=== PATIENT | male | born 1965 | race Caucasian/White ===

== ENCOUNTER 2016-11-16 19:15 | Emergency (ER) | payer MEDICAID | END 2016-11-16 20:08 | disposition left against medical advice (07) | LOC: D.ER 19:15 | DX: M25.512 Pain in left shoulder (principal) ==

== ENCOUNTER 2016-12-23 10:58 | Outpatient (CLI) | payer MEDICAID ==
[~2016-12-23] VITALS: Ht 165.1 cm; Wt 88.6 kg
--- NOTE | ~2016-12-23 | HEMODYNAMI ---
PATIENT:POLLO PRITCHARD MEDICAL RECORD: [id number] : 65 LOCATION:[facility] ADMISSION DATE: 12/23/16 Generatedon:12/23/201614:46 Patient name: POLLO PRITCHARD Patient #: [id number] SSN: : 1965 Date of study: 12/23/2016 Page: Of Hemodynamic Procedure Report Patient Data Patient Demographics Procedure consent was obtained First Name: POLLO Gender: Male Last Name: MACHO : 1965 Middle Initial: BORIS Age: 51 year(s) Patient #: [id number] Race: Unknown Additional ID: [id number] Contact details [address]: [address] [place] [address] State: [place] City: [place] Zip code: [address] Admission Admission Data Admission Date: 12/23/2016 Admission Time: 10:58 Procedure Procedure Types Cath Procedure Diagnostic Procedure LHC LHC w/Coronaries Miscellaneous Procedures Moderate Sedation up to 15 minutes Procedure Description Procedure Date Procedure Date: 12/23/2016 Procedure Start Time: 14:30 Procedure Staff Name Function Missael Suarez MD Performing Physician Xiomara Abreu RT Scrub Shital Rogers RN Nurse Nadine Castañeda RN Nurse Trey Hernandez RT Monitor Procedure Data Cath Procedure Fluoroscopy Diagnostic fluoroscopy Total fluoroscopy Time: 1.8 time: 1.8 min min Diagnostic fluoroscopy Total fluoroscopy dose: 610 dose: 610 mGy mGy Contrast Material Contrast Material Type Amount (ml) Isovue 370 63 Entry Location Entry Primary Successful Side Size Upsize Upsize Entry Closure Succes sful Closure Location (Fr) 1 (Fr) 2 (Fr) Remarks Device Remarks Radial Right 6 Fr artery Short Diagnostic catheters Device Type Used For End Catheter Placement Terumo 5Fr Rustam 110cm Coronary catheter Angiography Procedure Medications Medication Administration Route Dosage Oxygen NC 2 l/min Heparin Flush Bag added to field 2 bags (1000units/500ml NS) Lidocaine 2% added to field 20 Radial Cocktail added to field 1 syringe (Verapomil 2mg/Nitro 400mcg/Heparin 1500units) Versed I.V. 1 mg Fentanyl I.V. 50 mcg Radial Cocktail I.A. 1 syringe (Verapomil 2mg/Nitro 400mcg/Heparin 1500units) Versed I.V. 1 mg Fentanyl I.V. 50 mcg Versed I.V. 1 mg Fentanyl I.V. 50 mcg Hemodynamics Rest Heart Rate: 65 (bpm) Pressure Samples Time Site Value (mmHg) Purpose Heart Use Rate(bpm) 14:36 LV 135/27,17 Snapshot 95 Gradients Valve Time Site Site Mean SEP/DFP Peak To Heart Use 1 2 (mmHg) (sec/min) Peak Rate (mmHg) (bpm) Aortic 14:37 LV AO 90 Snapshots Pre Cath Intra NCS Post Cath Vital Signs Time Heart Resp SPO2 NIBP (mmHg) Rhythm Pain Sedation Rate (ipm) (%) Status Level (bpm) 14:15:05 68 21 98 138/88(118) NSR 0 (11) 10(A) , No pain 14:19:21 67 16 97 137/82(111) NSR 0 (11) 10(A) , No pain 14:23:33 70 21 97 127/89(108) NSR 0 (11) 10(A) , No pain 14:27:43 69 19 98 132/84(109) NSR 0 (11) 10(A) , No pain 14:31:53 72 16 97 143/90(103) NSR 0 (11) 10(A) , No pain 14:36:05 124 16 98 119/67(109) NSR 0 (11) 9(A) , No pain 14:40:08 82 21 95 111/77(106) NSR 0 (11) 9(A) , No pain 14:43:17 80 21 96 126/75(96) NSR 0 (11) 9(A) , No pain Medications Time Medication Route Dose Verified Delivered Reason Notes Effectiveness by by 14:14:13 Oxygen NC 2 l/min Missael Llamas. Vito Castañeda RN physician 14:14:20 Heparin Flush added 2 bags Missael Canas used for Bag to [facility] procedure (1000units/500ml field MD BOONE NS) 14:14:28 Lidocaine 2% added 20ml Missael Canas used for to vial [facility] procedure field MD BOONE 14:14:34 Radial Cocktail added 1 Missael Canas used for ([facility] 2[facility]/Nitro field MD BOONE 400mcg/Heparin 1500units) 14:30:06 Versed I.V. 1 mg Missael Nadine for sedation [facility] V[facility] Castañeda RN, MD 14:30:17 Fentanyl I.V. 50 mcg Missael Nadine for sedation St. Vito Castañeda RN, MD 14:32:19 Versed I.V. 1 mg Missael Missael for sedation ErickVito Suarez MD, MD 14:32:27 Fentanyl I.V. 50 mcg Missael Huynhory for sedation [place] Su[place] MD, MD 14:34:37 Versed I.V. 1 mg Missael Missael for sedation [place] Su[place] MD, MD 14:34:43 Fentanyl I.V. 50 mcg Missael Huynhory for sedation ErickVito Suarez MD, MD 14:35:18 Radial Cocktail I.A. 1 Missael Canas for ([facility] 2mg/Nitro MD BOONE 400mcg/Heparin 1500units) Procedure Log Time Note 13:46:21 Nadine Castañeda RN sent for patient. Start room use. 13:55:25 Time tracking: Regular hours 13:55:29 Plan of Care:Hemodynamics will remain stable., Cardiac rhythm will remain stable., Comfort level will be maintained., Respiratory function will remain adequate., Patient/ family verbilizes understanding of procedure., Procedure tolerated without complication., Recovers from procedure without complications.. 14:09:17 Patient received from Pre/Post Procedure Room to [facility] 2 Alert and oriented. Tansferred to table in Supine position. 14:09:20 Correct patient and procedure confirmed by team. 14:09:23 Signed procedure consent form obtained from patient. 14:09:24 ECG and BP/O2 sat monitors applied to patient. 14:09:26 Full Disclosure recording started 14:09:48 - 14:09:53 H&P Date Dictated: 12/23/2016 H&P Addendum completed by physician on day of procedure. (MUST COMPLETE FOR ALL OUTPATIENTS). 14::55 Pre-procedure instructions explained to patient. 14::55 Pre-op teaching completed and patient verbalized understanding. 14:09:57 Family in waiting room. 14:09:59 Patient NPO since Midnight. 14:10:47 Is the patient allergic to Iodine/contrast media? No. 14:10:51 Is patient on blood thinner?Yes 14:10:54 ACC The patient was administered the following blood thiners within the last 24 hours: ACCAspirin 14:10:56 Patient diabetic? Yes. 14:10:57 If diabetic: On Metformin? No 14:10:58 - 14:10:59 ----Pre-sedation anethsthesia assessment.---- 14:11:04 Previous problem with sedation/anesthesia? No ? 14:11:05 Snore? Yes 14:11:06 Sleep apnea? Yes 14:11:08 Deviated septum? No 14:11:10 Opens mouth fully? No 14:11:12 Sticks out tongue? No 14:11:17 Airway obstruction? No ? 14:11:25 Dentures? No ? 14:11:32 Patient pain scale 0/10 no pain. 14:11:48 IV patent on arrival in left forearm with 0.9% NaCl at KVO. 14:11:59 Use device set Radial Dx 14:12:16 MBrace Wrist Support opened to sterile field. 14:12:17 Tegaderm 4 x 4 opened to sterile field. 14:12:18 Acist Manifold opened to sterile field. 14:12:19 St Gustavo 260cm J .035 wire opened to sterile field. 14:12:20 Acist Hand Control opened to sterile field. 14:12:21 Terumo 6Fr Slender Glidesheath opened to sterile field. 14:12:21 Bag Decanter opened to sterile field. 14:12:22 Acist Syringe opened to sterile field. 14:12:23 Medline Cath Pack opened to sterile field. 14:12:29 Sharps counted by scrub and verified by R.N. 14:12:29 Alarms reviewed by R. N. 14:12:33 Right Radial & Right Groin area was prepped with chlora-prep and draped in sterile fashion 14:13:58 Vital chart was started 14:14:13 Oxygen 2 l/min NC was administered by Nadine Castañeda RN; Per physician; 14:14:20 Heparin Flush Bag (1000units/500ml NS) 2 bags added to field was administered by Missael Suarez MD; used for procedure; 14:14:28 Lidocaine 2% 20ml vial added to field was administered by Missael Suarez MD; used for procedure; 14:14:34 Radial Cocktail (Verapomil 2mg/Nitro 400mcg/Heparin 1500units) 1 syring e added to field was administered by Missael Suarez MD; used for procedure; 14:15:42 Baseline sample Acquired. 14:15:46 Rhythm: sinus rhythm 14:28:22 Zero performed for pressure channel P1 14:29:33 Physician arrived 14:29:34 --------ALL STOP TIME OUT------ 14:29:35 Final Timeout: patient, procedure, and site verified with staff and physician. All members of the team are in agreement. 14:29:37 Right Radial & Right Groin site verified by team. 14:29:43 Physical assessment completed. ASA score P 2 - A patient with mild systemic disease as per Missael Suarez MD. 14:29:47 Sedation plan: IV Moderate Sedation Versed, Fentanyl 14:30:06 Versed 1 mg I.V. was administered by Nadine Castañeda RN; for sedation; 14:30:08 Zero performed for pressure channel P1 14:30:17 Fentanyl 50 mcg I.V. was administered by Nadine Castañeda RN; for sedation; 14:30:41 Local anesthetic to right radial artery with Lidocaine 2% by Missael Cerda MD.INITIAL ACCESS ONLY 14:32:19 Versed 1 mg I.V. was administered by Missael Suarez MD; for sedation; 14:32:27 Fentanyl 50 mcg I.V. was administered by Missael Suarez MD; for sedation; 14:34:16 A 6 Fr Short sheath was inserted into the Right Radial artery 14:34:37 Versed 1 mg I.V. was administered by Missael Suarez MD; for sedation; 14:34:43 Fentanyl 50 mcg I.V. was administered by Missael Suarez MD; for sedation; 14:35:09 A Terumo 5Fr Rustam 110cm catheter was advanced over the wire and used for Coronary Angiography. 14:35:18 Radial Cocktail (Verapomil 2mg/Nitro 400mcg/Heparin 1500units) 1 syring e I.A. was administered by Missael Suarez MD; for vasodilation; 14:35:44 LV angiography performed. 14:37:39 LCA angiography performed. 14:39:24 RCA angiography performed. 14:40:34 Terumo TR Band Standard opened to sterile field. 14:40:42 Procedure ended.(Physican Out) 14:41:05 Fluoroscopy time 01.80 minutes. 14:41:14 Flurop Dose total: 610 14:41:14 Fluoroscopy dose: 610 mGy 14:41:25 Contrast amount:Isovue 370 63ml. 14:41:26 Sharps counted by scrub and verified by R.N. 14:41:28 Insertion/operative site no bleeding no hematoma. 14:41:43 Post right radial artery:stable 14:41:45 Post Procedure Pulses reassessed and unchanged 14:41:50 Post-procedure physical assessment completed. ASA score P 2 - A patient with mild systemic disease as per Missael Suarez MD. 14:41:54 Post procedure rhythm: unchanged. 14:43:05 TR band inflated with 11cc of air. 14:43:35 Procedure type changed to Cath procedure, Diagnostic procedure, LHC, LH C w/Coronaries, Miscellaneous Procedures, Moderate Sedation up to 15 minutes 14:45:35 Report given to Pre/Post Procedure Room. 14:45:42 Patient transfered to Pre/Post Procedure Room with Stretcher. 14:46:03 Vital chart was stopped Device Usage Item Name Manufacture Quantity Catalog Hospital Part Current Minimal Lot# / Number Charge Number Stock Stock Serial# Code [place] [address] [id number] 537677 40027 529158 5 Wrist Vascular Support Dynamics Tegaderm 4 3M 1 1626W 421637 561411 295565 5 x 4 Acist Acist 1 26137 840770 351307 093957 [address] Gustavo 1 138917 553234 521870 870359 30 260cm J .035 wire Acist Hand Acist 1 55234 199639 865934 099616 5 Control [employer] Inc Terumo 6Fr Terumo 1 [id number] 640944 869052 264387 40 Slender Glidesheath Bag Microtek 1 2002S 508466 31513 611414 5 Decanter Medical Inc. Acist Acist 1 16234 989549 874824 336936 20 Syringe Medical Systems Inc Medline Cardinal 1 [id number] 364698 90790 536176 5 Cath Pack Health Terumo 5Fr Terumo 1 94-9319 603208 696986 766073 5 Rustam 110cm catheter Terumo TR Terumo 1 [id number] 935833 608299 438479 40 Band Standard Signature Audit Roby Stage Time Signature Unsigned Intra-Procedure 12/23/2016 Trey 2:46:00 PM [place] RT (R) (CV) Signatures Monitor : Trey Signature : Mary RT Date : Time : [facility] [address] [place] [address]
[~2016-12-23 10:58] MED LIST: ASPIRIN325 MG PO; BUSPAR10 MG PO; NEURONTIN 300300 MG PO; NITROSTAT0.4 MG SL; ZESTRIL10 MG PO
[2016-12-23 11:25] VITALS: BP 137/85; Ht 165.1 cm; Wt 88.6 kg
[2016-12-23] MEDS ORDERED: HUMALOG 30100 UNITS/ SC (11:25)
[2016-12-23 11:46] LABS: BASOPHILS 0.2 % (0-2); EOSINOPHILS 0.7 % (0-7); HEMATOCRIT 48.7 % (42.0-54.0); HEMOGLOBIN 16.7 g/dL (13.5-17.5); IMMATURE GRANULOCYTES 0.1 % (0-5); LYMPHOCYTES 12.1 % (15-50); MCH 28.7 pg (26.0-34.0); MCHC 34.3 g/dL (31.0-37.0); MCV 83.7 fL (80.0-100.0); MEAN PLATELET VOLUME 9.1 fL (7.4-10.4); MONOCYTES 6.6 % (2-11); NEUTROPHILS 80.3 % (40-80); PLATELET COUNT 262 10x3/uL (130-400); RBC 5.82 10x6/uL (4.20-6.10); RDW 12.7 % (11.5-14.5)
[2016-12-23 12:20] LABS: CALC OSMOLALITY 294 mosm/kg (275-300); CALCIUM 8.7 mg/dL (8.5-10.1); CARBON DIOXIDE 27.3 mmol/L (21.0-32.0); CHLORIDE - SERUM 108 mmol/L (98-107); CREATININE - SERUM 0.8 mg/dL (0.6-1.3); GLUCOSE 212 mg/dL (74-106); POTASSIUM - SERUM 4.2 mmol/L (3.5-5.1); SODIUM 144 mmol/L (136-145); UREA NITROGEN 19 mg/dL (7-18); eGFR NON AFRICAN AMERICAN > 90 mL/min (90-120)
--- NOTE | 2016-12-23 15:09 | NUR ---
TR BAND TO R/WRIST CDI NO BLEEDING NO HEMATOMA NOTED. INSTRUCTED PATIENT TO KEEP RUE STRAIGHT NO BENDING OR FLEXING OF WRIST.
--- NOTE | 2016-12-23 15:30 | NUR ---
REPOSITIONED TO SITTING WITH HOB UP 30 DEGREES FOR SANDWICH AND SODA TR BAND TO R/WRIST REMAINS CDI NO BLEEDING NO HEMATOMA NOTED. CHEST PAIN IS DENIED WITH VSS
--- NOTE | 2016-12-23 16:03 | NUR ---
4 CC AIR REMOVED FROM TR BAND WITH NO BLEEDING NO HEMATOMA NOTED. PATIENT UP TO BATHROOM WITH ASSIST CHEST PAIN DENIED
--- NOTE | 2016-12-23 16:25 | NUR ---
2 CC AIR REMOVED FROM TR BAND WITH NO BLEEDING NOTED. PIV REMOVED WITH DRESSING APPLIED.
--- NOTE | 2016-12-23 17:00 | NUR ---
VERBAL AND WRITTEN DISCHARGE GONE OVER WITH PATIENT AND FAMILY. ALL VERBALIZED UNDERSTANDING. CHEST PAIN IS DENIED TR BAND REMOVED WITH NO BLEEDING NO HEMATOMA NOTED. TRANSPORTED TO FRONT PARKING FOR FAMILY TO DRIVE HOME
--- NOTE | 2016-12-25 15:45 | OP ---
PATIENT NAME: POLLO PRITCHARD MEDICAL RECORD: [id number] :65 LOCATION:[facility] ADMISSION DATE: SURGEON: FAM MAYO MD OPERATION DATE: 12/23/16 PROCEDURES: 1. Left heart catheterization. 2. Selective coronary angiography. PROCEDURE IN DETAIL: After informed consent was obtained and after detailed explanation of risks, benefits, as well as alternative therapies, the patient elected to proceed with angiogram. The right radial area was prepped and draped in a normal sterile fashion. The right radial artery was cannulated via modified Seldinger technique with placement o f radial sheath Rustam catheter. The procedure was well -tolerated. The patient was returned to the hernandez after the sheath was removed and TR band was placed. FINDINGS: Left ventriculography was performed in standard 30 degree ALANIS view, normal wall motion, normal systolic function. CORONARY ANATOMY: 1. LEFT MAIN: The left main is free of disease. 2. LEFT ANTERIOR DESCENDING: The left anterior descending is free of disease as is the diagonal system. 3. CIRCUMFLEX: The circumflex is free of disease as is the marginal system. 4. RIGHT CORONARY ARTERY: Dominant artery, gives rise to the PDA, free of disease. IMPRESSION: Normal left ventricular systolic function. Normal coronary anatomy. FAM MAYO MD at 1545 CC: [id number] DICTATION DATE: 12/23/16 1400 MANAGER OPERATIONAL: DM 12/25/16 0846 DEP CLI 12/23/16 [facility] [address] [place] [address]
== END 2016-12-23 17:02 ==
LOC: D.CATH 10:58
PROVIDERS: Internal Medicine Interventional Cardiology
DX: I20.9 Angina pectoris, unspecified (principal); I10 Essential (primary) hypertension; E11.9 Type 2 diabetes mellitus without complications; Z87.891 Personal history of nicotine dependence; Z01.812 Encounter for preprocedural laboratory examination

== ENCOUNTER 2017-04-09 20:46 | Emergency (ER) | payer MEDICAID ==
[2016-12-23 11:25] VITALS: BMI 32.5
[~2017-04-09 20:46] MED LIST changes: +HUMALOG 30100 UNITS/ SC
== END 2017-04-09 23:12 | disposition home or self-care (01) ==
LOC: D.ER 20:46
DX: N45.1 Epididymitis (principal)

== ENCOUNTER 2017-05-25 12:00 | Emergency (ER) | payer MEDICAID ==
[2016-12-23 11:25] VITALS: BMI 32.5
[2017-05-25 13:38] LABS: BASOPHILS 0.1 % (0-2); EOSINOPHILS 0.6 % (0-7); HEMATOCRIT 47.1 % (42.0-54.0); HEMOGLOBIN 16.6 g/dL (13.5-17.5); IMMATURE GRANULOCYTES 0.4 % (0-5); LYMPHOCYTES 16.6 % (15-50); MCHC 35.2 g/dL (31.0-37.0); MCV 82.2 fL (80.0-100.0); MEAN PLATELET VOLUME 9.1 fL (7.4-10.4); MONOCYTES 8.7 % (2-11); NEUTROPHILS 73.6 % (40-80); PLATELET COUNT 266 10x3/uL (130-400); RBC 5.73 10x6/uL (4.20-6.10); RDW 12.6 % (11.5-14.5); WBC 8.3 10x3/uL (4.8-10.8)
[2017-05-25 13:52] LABS: ALBUMIN 3.3 g/dL (3.4-5.0); ALKALINE PHOSPHATASE 67 U/L (46-116); ALT (SGPT) 28 U/L (10-68); BILIRUBIN - TOTAL 0.77 mg/dL (0.2-1.3); CALC OSMOLALITY 283 mosm/kg (275-300); CALCIUM 8.4 mg/dL (8.5-10.1); CARBON DIOXIDE 25.7 mmol/L (21.0-32.0); CHLORIDE - SERUM 104 mmol/L (98-107); CREATININE - SERUM 0.8 mg/dL (0.6-1.3); GLUCOSE 206 mg/dL (74-106); POTASSIUM - SERUM 4.7 mmol/L (3.5-5.1); PROTEIN - SERUM 6.7 g/dL (6.4-8.2); SODIUM 139 mmol/L (136-145); UREA NITROGEN 13 mg/dL (7-18); eGFR NON AFRICAN AMERICAN > 90 mL/min (90-120)
== END 2017-05-25 14:33 | disposition home or self-care (01) ==
LOC: D.ER 12:00
PROVIDERS: Family Medicine
DX: R51 Headache (principal); F17.200 Nicotine dependence, unspecified, uncomplicated; E11.9 Type 2 diabetes mellitus without complications; Z79.4 Long term (current) use of insulin; Z96.41 Presence of insulin pump (external) (internal); I10 Essential (primary) hypertension

== ENCOUNTER 2017-06-24 14:17 | Emergency (ER) | payer MEDICAID ==
[2016-12-23 11:25] VITALS: BMI 32.5
== END 2017-06-24 17:36 | disposition left against medical advice (07) ==
LOC: D.ER 14:17
DX: R05 Cough (principal)

== ENCOUNTER 2017-07-28 12:42 | Emergency (ER) | payer MEDICAID ==
[2016-12-23 11:25] VITALS: BMI 32.5
== END 2017-07-28 17:44 | disposition home or self-care (01) ==
LOC: D.ER 12:42
DX: R51 Headache (principal)

== ENCOUNTER 2018-01-27 16:40 | Emergency (ER) | payer MEDICAID ==
[~2018-01-27] VITALS: Ht 165.1 cm; Wt 94.1 kg
[2018-01-27 17:19] VITALS: Ht 165.1 cm; Wt 94.1 kg
[2018-01-27] MEDS ORDERED: MAG-OXIDE400 MG PO (17:20)
[2018-01-27] MEDS ORDERED: CYCLOBENZAPRINE10 MG PO (17:21)
[2018-01-27 18:02] LABS: BASOPHILS 0.2 % (0-2); EOSINOPHILS 0.7 % (0-7); HEMATOCRIT 47.5 % (42.0-54.0); HEMOGLOBIN 16.9 g/dL (13.5-17.5); IMMATURE GRANULOCYTES 0.3 % (0-5); MCH 29.4 pg (26.0-34.0); MCHC 35.6 g/dL (31.0-37.0); MCV 82.6 fL (80.0-100.0); MEAN PLATELET VOLUME 8.8 fL (7.4-10.4); MONOCYTES 6.8 % (2-11); PLATELET COUNT 247 10x3/uL (130-400); RBC 5.75 10x6/uL (4.20-6.10); RDW 12.8 % (11.5-14.5); WBC 11.3 10x3/uL (4.8-10.8)
[2018-01-27 18:27] LABS: ALBUMIN 3.7 g/dL (3.4-5.0); ALKALINE PHOSPHATASE 66 U/L (46-116); ALT (SGPT) 29 U/L (10-68); BILIRUBIN - TOTAL 0.59 mg/dL (0.2-1.3); CALC OSMOLALITY 277 mosm/kg (275-300); CALCIUM 8.8 mg/dL (8.5-10.1); CARBON DIOXIDE 32.5 mmol/L (21.0-32.0); CHLORIDE - SERUM 105 mmol/L (98-107); CREATININE - SERUM 0.9 mg/dL (0.6-1.3); GLUCOSE 76 mg/dL (74-106); POTASSIUM - SERUM 4.3 mmol/L (3.5-5.1); SODIUM 140 mmol/L (136-145); UREA NITROGEN 13 mg/dL (7-18); eGFR NON AFRICAN AMERICAN > 90 mL/min (90-120)
[2018-01-27 18:29] LABS: AMYLASE - SERUM 26 U/L (25-115); LIPASE 81 U/L (73-393)
[2018-01-27 18:32] LABS: TROPONIN-I < 0.017 ng/mL (0.000-0.060)
[2018-01-27 19:58] LABS: APPEARANCE CLEAR (CLEAR); BILIRUBIN NEGATIVE (NEGATIVE); COLOR YELLOW (YELLOW); GLUCOSE NEGATIVE (NEGATIVE); KETONE NEGATIVE (NEGATIVE); NITRITE NEGATIVE (NEGATIVE); PROTEIN NEGATIVE (NEGATIVE); SPECIFIC GRAVITY 1.015 (1.005-1.020); UROBILINOGEN NORMAL (NORMAL)
[2018-01-27] MEDS ORDERED: NORCO 7.5/325 T1 TA1 PO (21:32)
[2018-01-27 21:40] VITALS: BP 147/87
== END 2018-01-27 21:41 | disposition home or self-care (01) ==
LOC: D.ER 16:40
PROVIDERS: Family Medicine
DX: R07.81 Pleurodynia (principal); I10 Essential (primary) hypertension; E11.9 Type 2 diabetes mellitus without complications

== ENCOUNTER 2018-03-09 00:21 | Emergency (ER) | payer MEDICAID ==
[~2018-03-09] VITALS: Ht 165.1 cm; Wt 92.3 kg
[~2018-03-09 00:21] MED LIST changes: +CYCLOBENZAPRINE10 MG PO; +MAG-OXIDE400 MG PO; +NORCO 7.5/325 T1 TA1 PO
[2018-03-09 00:25] VITALS: Ht 165.1 cm; Wt 92.3 kg
[2018-03-09 00:54] LABS: APPEARANCE CLEAR (CLEAR); BILIRUBIN NEGATIVE (NEGATIVE); COLOR YELLOW (YELLOW); GLUCOSE 1000 mg/dL (NEGATIVE); KETONE NEGATIVE (NEGATIVE); NITRITE NEGATIVE (NEGATIVE); PROTEIN NEGATIVE (NEGATIVE); UROBILINOGEN NORMAL (NORMAL)
[2018-03-09 01:50] LABS: BASOPHILS 0.2 % (0-2); EOSINOPHILS 1.4 % (0-7); HEMATOCRIT 44.4 % (42.0-54.0); HEMOGLOBIN 15.7 g/dL (13.5-17.5); IMMATURE GRANULOCYTES 0.2 % (0-5); LYMPHOCYTES 18.5 % (15-50); MCH 29.2 pg (26.0-34.0); MCHC 35.4 g/dL (31.0-37.0); MCV 82.7 fL (80.0-100.0); MEAN PLATELET VOLUME 9.2 fL (7.4-10.4); MONOCYTES 10.2 % (2-11); NEUTROPHILS 69.5 % (40-80); PLATELET COUNT 242 10x3/uL (130-400); RBC 5.37 10x6/uL (4.20-6.10); RDW 12.8 % (11.5-14.5); WBC 8.5 10x3/uL (4.8-10.8)
[2018-03-09 01:57] LABS: INR 1.04 (0.85-1.17); PROTIME 13.2 SECONDS (11.6-15.0)
[2018-03-09 02:02] LABS: ALBUMIN 3.2 g/dL (3.4-5.0); ALKALINE PHOSPHATASE 61 U/L (46-116); ALT (SGPT) 18 U/L (10-68); BILIRUBIN - TOTAL 0.51 mg/dL (0.2-1.3); CALC OSMOLALITY 288 mosm/kg (275-300); CALCIUM 8.3 mg/dL (8.5-10.1); CARBON DIOXIDE 26.8 mmol/L (21.0-32.0); CHLORIDE - SERUM 105 mmol/L (98-107); CREATININE - SERUM 0.9 mg/dL (0.6-1.3); POTASSIUM - SERUM 3.7 mmol/L (3.5-5.1); PROTEIN - SERUM 6.3 g/dL (6.4-8.2); SODIUM 138 mmol/L (136-145); UREA NITROGEN 22 mg/dL (7-18); eGFR NON AFRICAN AMERICAN > 90 mL/min (90-120)
[2018-03-09 02:03] LABS: GLUCOSE 278 mg/dL (74-106)
[2018-03-09] MEDS ORDERED: NORCO 5/325 TAB1 TAB PO (02:37)
[2018-03-09 02:51] VITALS: BP 132/74
== END 2018-03-09 02:52 | disposition home or self-care (01) ==
LOC: D.ER 00:21
PROVIDERS: Family Medicine
DX: N50.812 Left testicular pain (principal); E11.9 Type 2 diabetes mellitus without complications; I10 Essential (primary) hypertension

== ENCOUNTER 2018-03-17 19:06 | Emergency (ER) | payer SELFPAY ==
[~2018-03-17] VITALS: Ht 165.1 cm; Wt 92.3 kg
[~2018-03-17 19:06] MED LIST changes: +NORCO 5/325 TAB1 TAB PO
[2018-03-17 19:10] VITALS: Ht 165.1 cm; Wt 92.3 kg
[2018-03-17 20:04] LABS: BASOPHILS 0.3 % (0-2); HEMATOCRIT 47.3 % (42.0-54.0); IMMATURE GRANULOCYTES 0.3 % (0-5); LYMPHOCYTES 21.1 % (15-50); MCH 29.5 pg (26.0-34.0); MCHC 35.9 g/dL (31.0-37.0); MCV 82.1 fL (80.0-100.0); MEAN PLATELET VOLUME 9.3 fL (7.4-10.4); MONOCYTES 8.7 % (2-11); NEUTROPHILS 68.6 % (40-80); PLATELET COUNT 253 10x3/uL (130-400); RBC 5.76 10x6/uL (4.20-6.10); RDW 12.8 % (11.5-14.5); WBC 8.8 10x3/uL (4.8-10.8)
[2018-03-17 20:56] LABS: ALBUMIN 3.6 g/dL (3.4-5.0); ANION GAP 13.4 mmol/L (8-16); BILIRUBIN - TOTAL 0.37 mg/dL (0.2-1.3); CALCIUM 8.7 mg/dL (8.5-10.1); CARBON DIOXIDE 25.7 mmol/L (21.0-32.0); CREATININE - SERUM 1.1 mg/dL (0.6-1.3); POTASSIUM - SERUM 4.1 mmol/L (3.5-5.1); PROTEIN - SERUM 6.7 g/dL (6.4-8.2)
[2018-03-17 21:35] LABS: APPEARANCE CLEAR (CLEAR); BILIRUBIN NEGATIVE (NEGATIVE); COLOR YELLOW (YELLOW); GLUCOSE 1000 mg/dL (NEGATIVE); KETONE NEGATIVE (NEGATIVE); NITRITE NEGATIVE (NEGATIVE); PROTEIN NEGATIVE (NEGATIVE); SPECIFIC GRAVITY 1.015 (1.005-1.020); UROBILINOGEN NORMAL (NORMAL)
[2018-03-17] MEDS ORDERED: NORCO 10-325 TA1 TAB PO (21:39)
[2018-03-17 21:56] VITALS: BP 164/101
== END 2018-03-17 21:57 | disposition home or self-care (01) ==
LOC: D.ER 19:06
PROVIDERS: Family Medicine
DX: N44.2 Benign cyst of testis (principal); E11.9 Type 2 diabetes mellitus without complications; I10 Essential (primary) hypertension

== ENCOUNTER 2018-05-05 03:32 | Emergency (ER) | payer SELFPAY ==
[~2018-05-05] VITALS: Ht 165.1 cm; Wt 95.0 kg
[~2018-05-05 03:32] MED LIST changes: +NORCO 10-325 TA1 TAB PO
[2018-05-05 03:36] VITALS: Ht 165.1 cm; Wt 95.0 kg
[2018-05-05 04:43] LABS: APPEARANCE CLEAR (CLEAR); COLOR YELLOW (YELLOW)
[2018-05-05 04:44] LABS: BILIRUBIN NEGATIVE (NEGATIVE); GLUCOSE 1000 mg/dL (NEGATIVE); KETONE NEGATIVE (NEGATIVE); NITRITE NEGATIVE (NEGATIVE); PROTEIN NEGATIVE (NEGATIVE); SPECIFIC GRAVITY 1.015 (1.005-1.020); UROBILINOGEN NORMAL (NORMAL)
[2018-05-05 04:47] LABS: BASOPHILS 0.2 % (0-2); EOSINOPHILS 0.9 % (0-7); HEMATOCRIT 46.6 % (42.0-54.0); HEMOGLOBIN 16.3 g/dL (13.5-17.5); IMMATURE GRANULOCYTES 0.2 % (0-5); MCH 29.1 pg (26.0-34.0); MCV 83.1 fL (80.0-100.0); MEAN PLATELET VOLUME 9.2 fL (7.4-10.4); MONOCYTES 9.4 % (2-11); NEUTROPHILS 77.3 % (40-80); PLATELET COUNT 261 10x3/uL (130-400); RBC 5.61 10x6/uL (4.20-6.10); RDW 12.6 % (11.5-14.5); WBC 9.5 10x3/uL (4.8-10.8)
[2018-05-05 05:18] LABS: ALKALINE PHOSPHATASE 64 U/L (46-116); ALT (SGPT) 13 U/L (10-68); BILIRUBIN - TOTAL 0.67 mg/dL (0.2-1.3); CARBON DIOXIDE 26.2 mmol/L (21.0-32.0); CHLORIDE - SERUM 104 mmol/L (98-107); CKMB 1.3 U/L (0.0-3.6); CREATINE KINASE 132 UL (21-232); POTASSIUM - SERUM 4.1 mmol/L (3.5-5.1); SODIUM 137 mmol/L (136-145); TROPONIN-I < 0.017 ng/mL (0.000-0.060)
[2018-05-05 05:28] LABS: CALC OSMOLALITY 289 mosm/kg (275-300); CALCIUM 7.7 mg/dL (8.5-10.1); CREATININE - SERUM 0.9 mg/dL (0.6-1.3); GLUCOSE 370 mg/dL (74-106); UREA NITROGEN 16 mg/dL (7-18); eGFR NON AFRICAN AMERICAN > 90 mL/min (90-120)
[2018-05-05 06:53] VITALS: BP 142/57
== END 2018-05-05 06:52 | disposition home or self-care (01) ==
LOC: D.ER 03:32
PROVIDERS: Family Medicine
DX: E11.65 Type 2 diabetes mellitus with hyperglycemia (principal); Z79.4 Long term (current) use of insulin; Z91.19 Patient's noncompliance with other medical treatment and regimen; I10 Essential (primary) hypertension

== ENCOUNTER 2019-06-17 13:43 | Emergency (ER) | payer MEDICAID ==
[~2019-06-17] VITALS: Ht 165.1 cm; Wt 101.4 kg
[2019-06-17 13:59] VITALS: Ht 165.1 cm; Wt 101.4 kg
[2019-06-17] MEDS ORDERED: PROZAC20 MG PO (14:01)
[2019-06-17] MEDS ORDERED: VISTARIL50 MG PO ×2 (17:16→17:17)
[2019-06-17 17:54] VITALS: BP 152/78
== END 2019-06-17 17:54 | disposition home or self-care (01) ==
LOC: D.ER 13:43
DX: R51 Headache (principal); E11.40 Type 2 diabetes mellitus with diabetic neuropathy, unspecified; I10 Essential (primary) hypertension; Z79.4 Long term (current) use of insulin; T43.215A Adverse effect of selective serotonin and norepinephrine reuptake inhibitors, initial encounter

== ENCOUNTER 2020-03-27 06:42 | Day surgery (SDC) | payer MEDICAID ==
[~2020-03-27] VITALS: Ht 165.1 cm; Wt 101.4 kg
[~2020-03-27 06:42] MED LIST changes: +PROZAC20 MG PO; +VISTARIL50 MG PO
[2020-03-27 07:22] LABS: ANION GAP 15.8 mmol/L (8-16); CARBON DIOXIDE 25.3 mmol/L (21.0-32.0); CREATININE - SERUM 1.1 mg/dL (0.6-1.3); POTASSIUM - SERUM 5.1 mmol/L (3.5-5.1)
[2020-03-27 07:43] VITALS: BP 136/77; Ht 165.1 cm; Wt 101.4 kg
--- NOTE | 2020-03-27 10:38 | NUR ---
0946 IV DC'D. CATHETER TIP INTACT. NO BLEEDING AT SITE AFTER HOLDING PRESSURE. BANDAID APPLIED. REVIEWED DISCHARGE INSTRUCTIONS WITH PT AND HIS WHO VOICE UNDERSTANDING OF INSTRUCTIONS.
--- NOTE | 2020-03-27 16:53 | OP ---
PATIENT NAME: POLLO PRITCHARD MEDICAL RECORD: [id number] :65 [facility] DATE: SURGEON: JL IRENE DO DATE OF OPERATION: 03/27/2020 PROCEDURE: Colonoscopy with polypectomy. INDICATIONS FOR PROCEDURE: Change in bowel habits and stomach cramps. SCOPE: Olympus video pediatric colonoscope. MEDICATIONS: Propofol 380 mg IV per anesthesia. WITHDRAWAL TIME: 7 minutes. ESTIMATED BLOOD LOSS: Minimal. COMPLICATIONS: None. FINDINGS: Informed consent was given. The patient was made comfortable with the above medication. After reaching an adequate level of sedation by slow IV push, the patient was placed on his left side. A digital rectal examination was performed and it was normal. The endoscope was advanced under direct visualization through the rectum to the cecum, confirmed by the presence of the appendiceal orifice and ileocecal valve. The endoscope was slowly withdrawn and mucosa was carefully examined. The prep quality was good. There were 6 total polyps visualized on today's examination. Two were located in the cecum. They were benign-appearing and sessile and ranged in size from 3-4 mm in diameter. They were both removed using a hot snare. In the ascending colon, there was a benign appearing sessile polyp, which measured approximately 4 mm in diameter. It was removed using a hot snare. In the transverse colon, there was a benign appearing sessile polyp, which measured approximately 5 mm in diameter, which was removed using a hot snare. In the descending colon, there were two separate polyps. One was a benign appearing sessile polyp, which measured approximately 5 mm in diameter, which was removed using a hot snare. The second was a larger semi-pedunculated polyp, which measured approximately 1.8-2 cm in size. It was removed using a hot snare. There was evidence of mild diverticulosis involving the sigmoid colon. Retroflexion was performed in the rectum with visualization of grade I internal hemorrhoids without bleeding. The endoscope was withdrawn from the patient. The patient tolerated the procedure well and there were no complications. IMPRESSION: 1. Multiple polyps as described above, removed using a hot snare. 2. Mild diverticulosis. 3. Grade I internal hemorrhoids without bleeding. PLAN AND RECOMMENDATIONS: 1. Discharge home when recovery parameters are met. 2. Follow up biopsy specimen results. 3. High fiber diet. 4. Supplement diet with 1 tablespoon of fiber daily. 5. Stay well hydrated. 6. Recall colonoscopy in 2 years. OPERATIVE REPORT [id number] POLLO PRITCHARD TRANSINT:[id number] Voice Confirmation ID: [id number] DOCUMENT ID: [id number] JL IRENE DO at 1653 CC: [id number] DICTATION DATE: 03/27/20906 SENIOR INTER[employer]ATIONAL TAX MANAGER: 03/27/20 1557 [facility] [place] [facility] 03/27/20 [id number] [place] [address]
== END 2020-03-27 09:56 | disposition home or self-care (01) ==
LOC: D.OPS 06:42
PROVIDERS: Anesthesiology; ATTEND Internal Medicine Gastroenterology
DX: R19.4 Change in bowel habit (principal); R10.13 Epigastric pain; K63.5 Polyp of colon; K57.30 Diverticulosis of large intestine without perforation or abscess without bleeding; K64.0 First degree hemorrhoids